=== PATIENT | female | born 1985 | race Caucasian/White ===

== ENCOUNTER 2018-04-07 13:44 | Emergency (ER) | payer BC ==
[2018-04-07] MEDS ORDERED: Albuterol/Ipratropium 3.0-0.5 MG/3 ML Neb Soln NEB ONE (14:18)
[2018-04-07 14:22] VITALS: BP 96/75
--- NOTE | 2018-04-07 14:24 | EDM.PDOC ---
ED HPI GENERAL MEDICAL PROBLEM - General Chief Complaint: Respiratory Problem Stated Complaint: SOB, PLEURITIC CP Time Seen by Provider: 04/07/18 14:00 Source of Information: Reports: Patient History Limitations: Reports: No Limitations - History of Present Illness INITIAL COMMENTS - FREE TEXT/NARRATIVE: Patient is a 32-year-old was seen in the ER with chief complaint of tightness around her chest increased difficulty breathing and chest discomfort chills during the night with sweats and a cough this started yesterday and got worse over around during the night. Patient is seen for evaluation and treatment recently had a pneumonia Onset: Gradual Duration: Hour(s):, Getting Worse Location: Reports: Chest Quality: Reports: Ache, Pressure Severity: Moderate Worsens with: Reports: Breathing Context: Reports: Other (Infection) Associated Symptoms: Reports: Diaphoresis, Fever/Chills Chest Pain Score (Numeric/FACES): 6 Back Pain Score (Numeric/FACES): 6 - Related Data Allergies Allergy/AdvReac Type Severity Reaction Status Date / Time No Known Allergies Allergy Verified 04/07/18 13:59 Home Meds: Home Meds Acetaminophen [Tylenol] 650 mg PO Q4H PRN 08/06/16 [History] Cyclobenzaprine HCl 1 tab PO TID PRN 08/06/16 [History] Ibuprofen 600 mg PO Q6H PRN 08/06/16 [History] Levothyroxine Sodium 75 mcg PO DAILY 08/06/16 [History] Methenamine Hippurate [Hiprex] 1 gm PO BID 08/06/16 [History] Phenazopyridine [Pyridium] 200 mg PO TID PRN 03/08/18 [History] Topiramate [Topamax] 50 mg PO BID 03/08/18 [History] Venlafaxine HCl [Venlafaxine HCl ER] 225 mg PO DAILY 03/08/18 [History] hydrOXYzine pamoate [Vistaril] 25 mg PO Q8H PRN 03/08/18 [History] Albuterol/Ipratropium [DuoNeb 3.0-0.5 MG/3 ML] 1 vial INH Q4H PRN 04/07/18 [ History] levoFLOXacin [Levaquin] 500 mg PO DAILY 5 Days #5 tab 04/07/18 [Rx] Past Medical History Cardiovascular History: Reports: None Respiratory History: Reports: None Gastrointestinal History: Reports: Colon Polyp Genitourinary History: Reports: UTI, Recurrent 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: , 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 Musculoskeletal History: Reports: None Neurological History: Reports: Seizure, Other (See Below) Other Neuro History: RLS Psychiatric History: Reports: Anxiety, Depression, Other (See Below) Other Psychiatric History: Hypersomnia Endocrine/Metabolic History: Reports: Hypothyroidism Hematologic History: Reports: None Immunologic History: Reports: None Oncologic (Cancer) History: Reports: None Dermatologic History: Reports: None - Past Surgical History HEENT Surgical History: Reports: Tonsillectomy GI Surgical History: Reports: Cholecystectomy, Colonoscopy Social & Family History - Caffeine Use Caffeine Use: Reports: None ED ROS GENERAL - Review of Systems Review Of Systems: See Below Constitutional: Reports: No Symptoms HEENT: Reports: No Symptoms Respiratory: Reports: Shortness of Breath, Cough Cardiovascular: Reports: No Symptoms Endocrine: Reports: No Symptoms GI/Abdominal: Reports: No Symptoms : Reports: No Symptoms Musculoskeletal: Reports: Back Pain Skin: Reports: No Symptoms Neurological: Reports: No Symptoms Psychiatric: Reports: No Symptoms Hematologic/Lymphatic: Reports: No Symptoms ED EXAM, GENERAL - Physical Exam Exam: See Below Exam Limited By: No Limitations General Appearance: Alert, WD/WN, No Apparent Distress Eye Exam: Bilateral Eye: EOMI, PERRL Ears: Normal External Exam, Normal Canal, Hearing Grossly Normal, Normal TMs Ear Exam: Bilateral Ear: Auricle Normal, Canal Normal, TM normal Nose: Normal Inspection, Normal Mucosa, No Blood Throat/Mouth: Normal Inspection, Normal Lips, Normal Teeth, Normal Gums, Normal Oropharynx, Normal Voice, No Airway Compromise Head: Atraumatic, Normocephalic Neck: Normal Inspection, Supple, Non-Tender, Full Range of Motion Respiratory/Chest: Lungs Clear, No Accessory Muscle Use, Chest Non-Tender, Respiratory Distress, Decreased Breath Sounds, Rales (Right base), Prolonged Expiration. No: No Respiratory Distress Cardiovascular: Normal Peripheral Pulses, Regular Rate, Rhythm, No Edema, No Gallop, No JVD, No Murmur, No Rub GI/Abdominal: Normal Bowel Sounds, Soft, Non-Tender, No Organomegaly, No Distention, No Abnormal Bruit, No Mass (Female) Exam: Normal External Exam, Normal Speculum Exam, Normal Bimanual Exam Back Exam: Normal Inspection, Full Range of Motion, NT Extremities: Normal Inspection, Normal Range of Motion, Non-Tender, Normal Capillary Refill, No Pedal Edema Neurological: Alert, Oriented, CN II-XII Intact, Normal Cognition, Normal Gait, Normal Reflexes, No Motor/Sensory Deficits Psychiatric: Normal Affect, Normal Mood Course - Vital Signs Last Recorded V/S: Last Vital Signs Temp 97.3 F 04/07/18 13:44 Pulse 91 04/07/18 14:00 Resp 22 H 04/07/18 14:00 BP 117/75 04/07/18 14:00 Pulse Ox 100 04/07/18 14:00 - Orders/Labs/Meds Orders: Active Orders 24 hr Category Date Time Status EKG Documentation Completion [RC] ASDIRECTED Care 04/07/18 13:58 Ordered RT Aerosol Therapy [RC] ASDIRECTED Care 04/07/18 14:18 Ordered Chest 2V [CR] Stat Exams 04/07/18 13:59 Ordered BASIC METABOLIC PANEL,BMP [CHEM] Stat Lab 04/07/18 13:57 Ordered TROPONIN I [CHEM] Stat Lab 04/07/18 13:57 Ordered Albuterol/Ipratropium [DuoNeb 3.0-0.5 MG/3 ML] Med 04/07/18 14:18 Once 3 ml NEB ONETIME ONE EKG 12 Lead [EK] Stat Ther 04/07/18 13:58 Ordered Labs: Laboratory Tests 04/07/18 Range/Units 14:05 WBC 9.3 (4.0-10.2) K/uL RBC 4.14 (3.77-5.09) M/uL Hgb 12.6 D (11.7-15.5) g/dL Hct 37.7 (34.0-46.0) % MCV 91.1 (84.0-98.0) fL MCH 30.4 (28.2-33.3) pg MCHC 33.4 (31.7-36.0) g/dL RDW 13.7 (11.2-14.1) % Plt Count 205 (150-350) K/uL Neut % (Auto) 71.4 (45.0-80.0) % Lymph % (Auto) 18.9 (10.0-50.0) % [place] % (Auto) 6.5 (2.0-14.0) % Eos % (Auto) 2.8 (0.0-5.0) % Baso % (Auto) 0.4 (0.0-2.0) % Neut # (Auto) 6.60 (1.40-7.00) K/uL Lymph # (Auto) 1.75 (0.50-3.50) K/uL [place] # (Auto) 0.60 (0.00-1.00) K/uL Eos # (Auto) 0.26 (0.00-0.50) K/uL Baso # (Auto) 0.04 (0.00-0.20) K/uL Departure - Departure Time of Disposition: 14:26 Disposition: Home, Self-Care 01 Clinical Impression: Pneumonia Pneumonia Qualifiers: Laterality: right Lung location: lower lobe of lung - Discharge Information *PRESCRIPTION DRUG MONITORING PROGRAM REVIEWED*: No *COPY OF PRESCRIPTION DRUG MONITORING REPORT IN PATIENT DIEGO: No Referrals: Sarah Pierre PA-C [Primary Care Provider] - Care Plan Goals: Patient felt better after DuoNeb x-ray revealed right lower lobe consolidation similar to the previous x-ray assessment at this time is pneumonia plan is to start her on Levaquin 500 daily for10 days follow-up in clinic if not better - My Orders Last 24 Hours: My Active Orders 04/07/18 13:57 BASIC METABOLIC PANEL,BMP [CHEM] Stat TROPONIN I [CHEM] Stat 04/07/18 13:58 EKG Documentation Completion [RC] ASDIRECTED EKG 12 Lead [EK] Stat 04/07/18 13:59 Chest 2V [CR] Stat 04/07/18 14:18 RT Aerosol Therapy [RC] ASDIRECTED Albuterol/Ipratropium [DuoNeb 3.0-0.5 MG/3 ML] 3 ml NEB ONETIME ONE - Assessment/Plan Last 24 Hours: My Active Orders 04/07/18 13:57 BASIC METABOLIC PANEL,BMP [CHEM] Stat TROPONIN I [CHEM] Stat 04/07/18 13:58 EKG Documentation Completion [RC] ASDIRECTED EKG 12 Lead [EK] Stat 04/07/18 13:59 Chest 2V [CR] Stat 04/07/18 14:18 RT Aerosol Therapy [RC] ASDIRECTED Albuterol/Ipratropium [DuoNeb 3.0-0.5 MG/3 ML] 3 ml NEB ONETIME ONE
[2018-04-07 14:27] LABS: CHLORIDE,CL 104 mmol/L (98-107); SODIUM,NA 139 mmol/L (136-145)
== END 2018-04-07 15:00 | disposition home or self-care (01) ==
LOC: LL.ED 13:44
DX: J18.9 Pneumonia, unspecified organism (principal); E03.9 Hypothyroidism, unspecified; Z79.899 Other long term (current) drug therapy
CPT/HCPCS: 36415; 71046; 80048; 84484; 85025; 93005; 94640; 99285; J7620-GY

== ENCOUNTER 2018-08-16 10:45 | Emergency (ER) | payer BC, OTHER ==
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
[2018-08-16 10:52] VITALS: BP 137/84
[2018-08-16 11:31] LABS: CHLORIDE,CL 110 mmol/L (98-107); SODIUM,NA 143 mmol/L (136-145)
[2018-08-16] MEDS: Potassium Chloride 20 MEQ Tab.ER PO ONE (11:55)
== END 2018-08-16 12:05 | disposition home or self-care (01) ==
LOC: LL.ED 10:45
DX: E87.6 Hypokalemia (principal); F42.9 Obsessive-compulsive disorder, unspecified; M15.0 Primary generalized (osteo)arthritis; E03.9 Hypothyroidism, unspecified; F41.8 Other specified anxiety disorders; Z71.6 Tobacco abuse counseling; Z77.22 Contact with and (suspected) exposure to environmental tobacco smoke (acute) (chronic); E78.00 Pure hypercholesterolemia, unspecified; Z79.899 Other long term (current) drug therapy
CPT/HCPCS: 36415; 80053; 83605; 84443; 85025; 87081; 87430; 87804; 99283; A9270

== ENCOUNTER 2019-05-03 21:12 | Emergency (ER) | payer BC, OTHER ==
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
[2019-05-03] MEDS ORDERED: Diphtheria,Pertussis(Acell),Tetanus Vaccine 0.5 ML SDV IM ONE (21:27)
[2019-05-03] MEDS ORDERED: Bacitracin/Neomycin/Polymyxin B Oint 0.9 GM U/D Packet TOP ONE (21:27)
[2019-05-03 21:37] VITALS: BP 114/66; PULSE 65
== END 2019-05-03 21:55 | disposition home or self-care (01) ==
LOC: LL.ED 21:12
DX: S61.012A Laceration without foreign body of left thumb without damage to nail, initial encounter (principal); W26.8XXA Contact with other sharp object(s), not elsewhere classified, initial encounter; Y92.89 Other specified places as the place of occurrence of the external cause; Y99.0 Civilian activity done for income or pay
CPT/HCPCS: 12002; 90471; 90715; 99282; J2001

== ENCOUNTER 2020-11-04 22:11 | Emergency (ER) | payer OTHER ==
[2020-11-04] MEDS: Acetaminophen/HYDROcodone 325-10 MG Tab PO ONE (22:42)
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
[2020-11-04 23:58] VITALS: BP 150/81; PULSE 81
[2020-11-05] MEDS: Acetaminophen/HYDROcodone 325-5 MG Tab PO ONE (01:48)
[2020-11-05] MEDS: Acetaminophen/HYDROcodone 325-5 MG Tab PO PRN (01:51)
== END 2020-11-04 23:20 | disposition home or self-care (01) ==
LOC: SUPCPDRO 22:11 → LL.ED 22:11
DX: S50.02XA Contusion of left elbow, initial encounter (principal); S40.012A Contusion of left shoulder, initial encounter; E03.9 Hypothyroidism, unspecified; E66.9 Obesity, unspecified; Z68.41 Body mass index [BMI] 40.0-44.9, adult; V40.0XXA Car driver injured in collision with pedestrian or animal in nontraffic accident, initial encounter
CPT/HCPCS: 29105; 73030-LT; 73080-LT; 99284-25; A9270-GY

== ENCOUNTER 2021-07-15 17:32 | Emergency (ER) | payer OTHER ==
[2021-07-15 18:14] LABS: ANION GAP 19.3 meq/L (7-15); CHLORIDE,CL 107 mmol/L (98-107); SODIUM,NA 142 mmol/L (136-145)
[2021-07-15 19:49] VITALS: BP 152/91; PULSE 124
== END 2021-07-15 18:30 | disposition home or self-care (01) ==
LOC: LL.ED 17:32
DX: J40 Bronchitis, not specified as acute or chronic (principal); E03.9 Hypothyroidism, unspecified; E66.9 Obesity, unspecified; Z79.899 Other long term (current) drug therapy
CPT/HCPCS: 36415; 71046; 80048; 85025; 86140; 99283-25

== ENCOUNTER 2021-09-27 19:45 | Emergency (ER) | payer OTHER ==
[2021-09-27 20:01] VITALS: BP 139/85
[2021-09-27] MEDS ORDERED: diphenhydrAMINE 50 MG/ML SDV IVPUSH ONE (20:03)
[2021-09-27] MEDS ORDERED: Lactated Ringers 1,000 ML IV ONE (20:03)
[2021-09-27] MEDS ORDERED: HYDROmorphone 0.5 MG/0.5 ML Syringe IV ONE (20:03)
[2021-09-27] MEDS ORDERED: Ketorolac 30 MG/ML SDV IVPUSH ONE (20:03)
[2021-09-27] MEDS: Sodium Chloride 0.9% 10 ML Syringe FLUSH PRN ×2 (20:26→20:41)
[2021-09-27 20:42] LABS: CHLORIDE,CL 104 mmol/L (98-107); SODIUM,NA 139 mmol/L (136-145)
[2021-09-27 20:44] LABS: ANION GAP 17.7 meq/L (7-15)
[2021-09-27] MEDS ORDERED: HYDROmorphone 1 MG/ML Syringe IVPUSH ONE (21:45)
[2021-09-27] MEDS ORDERED: Doxycycline Monohydrate 100 MG Cap PO ONE (21:47)
[2021-09-27] MEDS ORDERED: predniSONE 20 MG Tab PO STA (21:47)
[2021-09-27 23:34] VITALS: PULSE 67
== END 2021-09-27 22:20 | disposition home or self-care (01) ==
LOC: LL.ED 19:45
DX: J32.9 Chronic sinusitis, unspecified (principal); B96.89 Other specified bacterial agents as the cause of diseases classified elsewhere; E78.00 Pure hypercholesterolemia, unspecified; E03.9 Hypothyroidism, unspecified; E66.9 Obesity, unspecified; Z68.41 Body mass index [BMI] 40.0-44.9, adult
CPT/HCPCS: 36415; 70486; 80053; 81003; 83605; 84145; 85025; 86140; 87040; 96374; 96375; 96376; 99283; 99284-25; A9270-GY; J1170; J1200; J1885; J3490; J7120; J7512

== ENCOUNTER 2021-10-01 17:58 | Observation (INO) | payer OTHER ==
[2021-10-01] MEDS ORDERED: Ondansetron 4 MG/2 ML SDV IVPUSH ONE (18:15)
[2021-10-01] MEDS ORDERED: Sodium Chloride 0.9% 1,000 ML IV SCH (18:15)
[2021-10-01] MEDS ORDERED: HYDROmorphone 1 MG/ML Syringe IVPUSH PRN (18:28)
[2021-10-01] MEDS ORDERED: Piperacillin/Tazobactam 4.5 GM in Sodium Chloride 0.9% 100 ML IV ONE (18:30)
[2021-10-01] MEDS: Sodium Chloride 0.9% 10 ML Syringe FLUSH PRN (18:51)
[2021-10-01] MEDS ORDERED: Iopamidol 612 MG/ML 100 ML Bottle IVPUSH STA (19:13)
[2021-10-01 19:14] LABS: ANION GAP 12.6 meq/L (7-15); CHLORIDE,CL 103 mmol/L (98-107); SODIUM,NA 137 mmol/L (136-145)
[2021-10-01] MEDS ORDERED: Acetaminophen 325 MG Tab PO PRN (21:02)
[2021-10-01] MEDS ORDERED: Ketorolac 30 MG/ML SDV IM PRN (21:02)
[2021-10-01] MEDS ORDERED: Ibuprofen 600 MG Tab PO PRN (21:02)
[2021-10-01] MEDS ORDERED: Ketorolac 15 MG/ML SDV IVPUSH PRN (21:21)
[2021-10-01] MEDS: Sodium Chloride 0.9% 1,000 ML IV SCH (21:54)
[2021-10-01] MEDS: Acetaminophen/HYDROcodone 325-5 MG Tab PO PRN (21:54)
[2021-10-02] MEDS: Piperacillin/Tazobactam 3.375 GM in Sodium Chloride 0.9% 100 ML IV SCH ×4 (00:37→18:05)
[2021-10-02] MEDS ORDERED: Ondansetron 4 MG/2 ML SDV IVPUSH PRN (05:51)
[2021-10-02] MEDS: Sodium Chloride 0.9% 1,000 ML IV SCH ×2 (06:17→13:01)
[2021-10-02] MEDS ORDERED: FLUoxetine 20 MG Cap PO SCH (08:00)
[2021-10-02] MEDS ORDERED: Levothyroxine 50 MCG Tab PO SCH (08:00)
[2021-10-02] MEDS ORDERED: Levothyroxine 100 MCG Tab PO SCH (08:00)
[2021-10-02 09:05] LABS: ANION GAP 11.3 meq/L (7-15)
[2021-10-02] MEDS: Potassium Chloride Riders 10 MEQ in Premix Bag 1 BAG IV SCH ×4 (10:40→14:49)
[2021-10-02] MEDS: Acetaminophen/HYDROcodone 325-5 MG Tab PO PRN ×2 (11:06→16:00)
[2021-10-02] MEDS ORDERED: Ondansetron 4 MG Tab.DIS PO PRN (12:00)
[2021-10-02] MEDS: Sodium Chloride 0.9% 10 ML Syringe FLUSH PRN ×2 (13:01→13:33)
[2021-10-02 14:57] VITALS: BP 105/66; PULSE 63
== END 2021-10-02 19:00 | disposition home or self-care (01) ==
LOC: LL.ED 17:58 → LL.MS 20:30
PROVIDERS: ADMIT Physician Assistant; ATTEND Physician Assistant
DX: J32.8 Other chronic sinusitis (principal); B96.89 Other specified bacterial agents as the cause of diseases classified elsewhere; E78.00 Pure hypercholesterolemia, unspecified; E03.9 Hypothyroidism, unspecified; E66.9 Obesity, unspecified; E87.6 Hypokalemia; Z79.890 Hormone replacement therapy; Z98.890 Other specified postprocedural states; Z79.899 Other long term (current) drug therapy; Z68.41 Body mass index [BMI] 40.0-44.9, adult
CPT/HCPCS: 36415; 70487; 80048; 80053; 83605; 85025; 86140; 87040; 96365; 96366; 96375; 96376; 99217; 99220; 99284-25; A9270-GY; G0378; J1170; J1885; J2405; J2543; J3480; J3490; J7030; Q9967

== ENCOUNTER 2021-10-25 18:19 | Emergency (ER) | payer OTHER ==
[2021-10-25] MEDS ORDERED: Sodium Chloride 0.9% 10 ML Syringe FLUSH PRN (18:36)
[2021-10-25 19:15] LABS: PTT,PARTIAL THROMBOPLSTIN TIME 23.5 SEC (23.6-29.8)
[2021-10-25 19:20] LABS: ANION GAP 12.8 meq/L (7-15); CHLORIDE,CL 103 mmol/L (98-107); SODIUM,NA 138 mmol/L (136-145)
[2021-10-25] MEDS: Lactated Ringers 1,000 ML IV SCH (19:42)
[2021-10-25 20:18] LABS: CORONAVIRUS COVID-19 NAA NEGATIVE (NEGATIVE); RESPIRATORY SYNCYTIAL VIR NAA NEGATIVE (NEGATIVE)
[2021-10-25 22:09] VITALS: BP 136/72; PULSE 68
== END 2021-10-25 21:45 | disposition home or self-care (01) ==
LOC: LL.ED 18:19
DX: R53.83 Other fatigue (principal); E86.0 Dehydration; E78.00 Pure hypercholesterolemia, unspecified; E03.9 Hypothyroidism, unspecified; E66.9 Obesity, unspecified; Z68.43 Body mass index [BMI] 50.0-59.9, adult; Z79.899 Other long term (current) drug therapy; Z20.822 Contact with and (suspected) exposure to COVID-19
CPT/HCPCS: 0241U; 36415; 71045; 80053; 81001; 81025; 83605; 83735; 84100; 84443; 84484; 85025; 85610; 85730; 86140; 87040; 93005; 93010; 99284; J7120

== ENCOUNTER 2022-02-27 08:52 | Emergency (ER) | payer BC, OTHER ==
[2022-02-27 10:08] LABS: ANION GAP 13.6 meq/L (7-15)
[2022-02-27] MEDS ORDERED: Morphine 2 MG/ML SYRINGE IVPUSH ONE (10:16)
[2022-02-27] MEDS ORDERED: Lactated Ringers 1,000 ML IV ONE (10:21)
[2022-02-27] MEDS ORDERED: Sodium Chloride 0.9% 10 ML Syringe FLUSH PRN (10:23)
[2022-02-27 14:52] VITALS: BP 115/76; PULSE 72
== END 2022-02-27 14:22 | disposition home or self-care (01) ==
LOC: LL.ED 08:52
DX: R10.31 Right lower quadrant pain (principal); E78.00 Pure hypercholesterolemia, unspecified; E03.9 Hypothyroidism, unspecified; E66.9 Obesity, unspecified; Z68.42 Body mass index [BMI] 45.0-49.9, adult
CPT/HCPCS: 36415; 74176; 80053; 81001; 84703; 85025; 96374; 99284; 99284-25; J2270; J7120